=== PATIENT | female | born 1960 | race Caucasian/White ===

== ENCOUNTER 2016-03-17 14:08 | Emergency (ER) | payer OTHER ==
[~2016-03-17 14:08] MED LIST: /AUGM875TA; /PANT40TA PO; AMBI10TA OR; AMIT25TA PO; ASPI1TAB; BACL-67 PO; BUSPAR PO; COLA100C2 OR; COUM2.5T11 PO; DARV100T; DIFL200T; DULO30CA PO; IBUPPOW25; KLON2TAB PO; NYSTATIN; PERC5TAB8 OR; PERC7.5T8 OR; PERCOCET PO; TYLE167L PO; VIT D 2000 PO; VITA1CAP7 PO; VITA250L PO; VITA400C OR
--- NOTE | 2016-03-17 16:24 | EDDOCDS ---
Physician Documentation [facility] Name: Denise Olivarez Age: 56 yrs Sex: Female : 1960 Arrival Date: 03/17/2016 Time: 14:08 Bed TR8 Private MD: Cole Godinez D Disposition: 03/17/16 16:11 Discharged to Home/Self Care. Impression: Epigastric pain. - Condition is Stable. - Discharge Instructions: Abdominal Pain, Adult, Gastritis, Adult, Yelv-[id number]. - Medication Reconciliation, Local Pharmacy Hours form. - Follow up: Sukhi Hanks; When: Call to arrange an appointment; Reason: Recheck today's complaints, Continuance of care. - Problem is an ongoing problem. - Symptoms are unchanged. Historical: - Allergies: Morphine (palpitation); Hydrocortisone (palpitation); Latex (Hives); - Home Meds: 1. buspirone 10 mg Oral tab 2 tabs 2 times per day 2. clonazepam 0.5 mg Oral tab 2 tabs 2 times per day 3. Protonix 40 mg oral TbEC 1 tab once daily 4. Cymbalta 30 mg Oral cpDR 1 cap once daily 5. hydrocodone-acetaminophen 10-325 mg oral tab every 4-6 hours 6. Zoloft 100 mg Oral tab 1 tab once daily 7. gabapentin 300 mg Oral tab three times a day 8. Carafate 1 gram Oral tab three times a day 9. zinc sulfate 110 mg (25 mg zinc) Oral tab daily 10. Vitamin D Oral 5000 unit daily 11. 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 No barriers to communication noted, The patient speaks fluent Polish. - Family history: Not pertinent. - : The pt / caregiver states he / she is not on anticoagulants. Home medication list is obtained from the patient. - Exposure Risk Screening:: None identified. Vital Signs: 03/17 14:10 BP 121 / 74; Pulse 86; Resp 18; Temp 97.2; Pulse Ox 100% ; Weight 68.04 kg / 150 lbs; elp Height 5 ft. 6 in. (167.64 cm); Pain 9/10; 14:10 Body Mass Index 24.21 (68.04 kg, 167.64 cm) elp MDM: 16:21 [facility] [place] Payment Agreement was scanned into [employer] and attached to record. jp5 16:21 Financial registration complete. jp5 Signatures: Juliana CookRN RN rs3 Billie SantosRN RN ld5 Bj Combs PA PA mo1 Joanne Ayoub jp5 The chart was reviewed and I authenticate all verbal orders and agree with the evaluation and treatment provided.Attachments: 16:21 [facility] [place] Payment Agreement jp5 MTDD
--- NOTE | 2016-03-17 16:24 | EDDOCDS ---
Nurse's Notes [facility] Name: Denise Olivarez Age: 56 yrs Sex: Female : 1960 Arrival Date: 03/17/2016 Time: 14:08 Bed TR8 Private MD: Cole Godinez D Diagnosis: Epigastric pain Presentation: 03/17 14:27 Presenting complaint: Patient states: abdominal pain for months. diagnosed with lupus. rs3 worse abdominal pain/vomiting for a month. not resolved with Carafate, protonix. Risk factors: the patient reports no vaginal bleeding. Adult Sepsis Screening: The patient does not have new or worsening altered mentation. Patient's respiratory rate is less than 22. Systolic blood pressure is greater than 100. Patient has a qSOFA score of 0- Negative Sepsis Screen. Suicide/Homicide risk assessment- the patient denies having any suicidal and/or homicidal ideations and does not present with any other emotional, behavioral or mental health complaints. Status: Patient is not a customer complaint service supervisor or dependent. Transition of care: patient was not received from another setting of care. 14:27 Acuity: YUDI Level 3 rs3 14:27 Method Of Arrival: Walkin/Carried/Asstd rs3 Triage Assessment: 14:34 General: Appears in no apparent distress. Pain: Location: abdomen. Pt Declines HIV rs3 testing. GI: Reports lower abdominal pain, upper abdominal pain. Historical: - Allergies: Morphine (palpitation); Hydrocortisone (palpitation); Latex (Hives); - Home Meds: 1. buspirone 10 mg Oral tab 2 tabs 2 times per day 2. clonazepam 0.5 mg Oral tab 2 tabs 2 times per day 3. Protonix 40 mg oral TbEC 1 tab once daily 4. Cymbalta 30 mg Oral cpDR 1 cap once daily 5. hydrocodone-acetaminophen 10-325 mg oral tab every 4-6 hours 6. Zoloft 100 mg Oral tab 1 tab once daily 7. gabapentin 300 mg Oral tab three times a day 8. Carafate 1 gram Oral tab three times a day 9. zinc sulfate 110 mg (25 mg zinc) Oral tab daily 10. Vitamin D Oral 5000 unit daily 11. 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 No barriers to communication noted, The patient speaks fluent Syriac. - Family history: Not pertinent. - : The pt / caregiver states he / she is not on anticoagulants. Home medication list is obtained from the patient. - Exposure Risk Screening:: None identified. Screenin:44 Screening information is obtained from the patient. Fall risk: No risks identified. ms2 Assistance ADL's: requires no assistance with activities of daily living. Abuse/DV Screen: The patient / caregiver reports he/she is: not in a situation that causes fear, pain or injury. Nutritional screening: No deficits noted. Advance Directives: Currently, there is no health care proxy. There is no active DNR order. There is no living will. There is no Power of Personnel Clerks Supervisor. Advance directive information has not previously been placed in an [facility] medical record. Further advance directive information is declined. home support is adequate. Assessment: 15:43 General: Appears in no apparent distress, Behavior is cooperative. Pain: Pain currently ms2 is 8 out of 10 on a pain scale. Pain: Location: mid -epigastric area. Neurological: Level of Consciousness is awake, alert, obeys commands. Respiratory: No deficits noted. Airway is patent Respiratory effort is even, unlabored, Respiratory pattern is regular, symmetrical. GI: Abdomen is flat, non- distended. Derm: Skin is pink, warm & dry. Musculoskeletal: Range of motion intact in all extremities. 16:22 General: Appears in no apparent distress. Neurological: Level of Consciousness is ld5 awake, alert. Respiratory: Airway is patent Respiratory effort is even, unlabored. Vital Signs: 14:10 BP 121 / 74; Pulse 86; Resp 18; Temp 97.2; Pulse Ox 100% ; Weight 68.04 kg; Height 5 elp ft. 6 in. (167.64 cm); Pain 9/10; 14:10 Body Mass Index 24.21 (68.04 kg, 167.64 cm) [facility] Vitals: 14:10 Log In Time: March 17, 2016 at 14:08. [facility] ED Course: 14:10 Patient visited by Pamela Dave PCA. elp 14:10 Cole Godinez is Private Physician. elp 14:10 Patient visited by Patchen, Pamela, COMMUNITY SUPPORT PROFESSIONAL. elp 14:10 Patient moved to Waiting elp 14:11 Patient moved to Pre RCE elp 14:29 Triage Initiated rs3 15:43 Patient visited by Emerson Chang RN. ms2 15:43 Patient moved to Triage 1 ms2 15:44 The patient / caregiver is instructed regarding the plan of care and ED course. ms2 15:59 [facility] mo1 15:59 Emerson Chu MD is Attending Physician. mo1 16:01 Patient visited by Bj Combs PA. mo1 16:11 Sukhi Hanks is Referral Physician. mo1 16:20 Patient moved to TR8 ct3 16:21 [facility] Payment Agreement was scanned into [employer] and attached to record. jp5 16:22 No IV's were initiated during this patient's visit. No procedures done that require ld5 assistance. 16:23 Patient visited by Billie Santos RN. ld5 Order Results: There are currently no results for this order. Outcome: 16:11 Discharge ordered by Provider. mo1 16:22 Discharge Assessment: Patient awake, alert and oriented x 3. No cognitive and/or ld5 functional deficits noted. Patient verbalized understanding of disposition instructions. patient administered narcotics - no. The following High Risk Discharge criteria are identified: None. Discharged to home ambulatory. Condition: stable. Discharge instructions given to patient, Instructed on discharge instructions, follow up and referral plans. Demonstrated understanding of instructions, Pt was receptive of discharge instructions/ teaching. No special radiology studies were completed. Property :Personal belongings accompany Pt. 16:23 Patient left the ED. ld5 Signatures: Emerson Chang,RONAL RN ms2 Juliana Cook RN RN rs3 Billie Santos RN RN ld5 CentenoMay hinojosa, COMMUNITY SUPPORT PROFESSIONAL COMMUNITY SUPPORT PROFESSIONAL ct3 Bj Combs PA PA mo1 Pamela aDve, COMMUNITY SUPPORT PROFESSIONAL COMMUNITY SUPPORT PROFESSIONAL elp Joanne Ayoub jp5 MTDD
--- NOTE | 2016-03-19 17:23 | EDDOCDS ---
Nurse's Notes [facility] Name: Denise Olivarez Age: 56 yrs Sex: Female : 1960 Arrival Date: 03/17/2016 Time: 14:08 Bed TR8 Private MD: Cole Godinez D Diagnosis: Epigastric pain Presentation: 03/17 14:27 Presenting complaint: Patient states: abdominal pain for months. diagnosed with lupus. rs3 worse abdominal pain/vomiting for a month. not resolved with Carafate, protonix. Risk factors: the patient reports no vaginal bleeding. Adult Sepsis Screening: The patient does not have new or worsening altered mentation. Patient's respiratory rate is less than 22. Systolic blood pressure is greater than 100. Patient has a qSOFA score of 0- Negative Sepsis Screen. Suicide/Homicide risk assessment- the patient denies having any suicidal and/or homicidal ideations and does not present with any other emotional, behavioral or mental health complaints. Status: Patient is not a appliance service technician or dependent. Transition of care: patient was not received from another setting of care. 14:27 Acuity: YUDI Level 3 rs3 14:27 Method Of Arrival: Walkin/Carried/Asstd rs3 Triage Assessment: 14:34 General: Appears in no apparent distress. Pain: Location: abdomen. Pt Declines HIV rs3 testing. GI: Reports lower abdominal pain, upper abdominal pain. Historical: - Allergies: Morphine (palpitation); Hydrocortisone (palpitation); Latex (Hives); - Home Meds: 1. buspirone 10 mg Oral tab 2 tabs 2 times per day 2. clonazepam 0.5 mg Oral tab 2 tabs 2 times per day 3. Protonix 40 mg oral TbEC 1 tab once daily 4. Cymbalta 30 mg Oral cpDR 1 cap once daily 5. hydrocodone-acetaminophen 10-325 mg oral tab every 4-6 hours 6. Zoloft 100 mg Oral tab 1 tab once daily 7. gabapentin 300 mg Oral tab three times a day 8. Carafate 1 gram Oral tab three times a day 9. zinc sulfate 110 mg (25 mg zinc) Oral tab daily 10. Vitamin D Oral 5000 unit daily 11. 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 No barriers to communication noted, The patient speaks fluent Setswana. - Family history: Not pertinent. - : The pt / caregiver states he / she is not on anticoagulants. Home medication list is obtained from the patient. - Exposure Risk Screening:: None identified. Screenin:44 Screening information is obtained from the patient. Fall risk: No risks identified. ms2 Assistance ADL's: requires no assistance with activities of daily living. Abuse/DV Screen: The patient / caregiver reports he/she is: not in a situation that causes fear, pain or injury. Nutritional screening: No deficits noted. Advance Directives: Currently, there is no health care proxy. There is no active DNR order. There is no living will. There is no Power of Fish Rod Maker. Advance directive information has not previously been placed in an [facility] medical record. Further advance directive information is declined. home support is adequate. Assessment: 15:43 General: Appears in no apparent distress, Behavior is cooperative. Pain: Pain currently ms2 is 8 out of 10 on a pain scale. Pain: Location: mid -epigastric area. Neurological: Level of Consciousness is awake, alert, obeys commands. Respiratory: No deficits noted. Airway is patent Respiratory effort is even, unlabored, Respiratory pattern is regular, symmetrical. GI: Abdomen is flat, non- distended. Derm: Skin is pink, warm & dry. Musculoskeletal: Range of motion intact in all extremities. 16:22 General: Appears in no apparent distress. Neurological: Level of Consciousness is ld5 awake, alert. Respiratory: Airway is patent Respiratory effort is even, unlabored. Vital Signs: 14:10 BP 121 / 74; Pulse 86; Resp 18; Temp 97.2; Pulse Ox 100% ; Weight 68.04 kg; Height 5 elp ft. 6 in. (167.64 cm); Pain 9/10; 14:10 Body Mass Index 24.21 (68.04 kg, 167.64 cm) [facility] Vitals: 14:10 Log In Time: March 17, 2016 at 14:08. [facility] ED Course: 14:10 Patient visited by Pamela Dave PCA. elp 14:10 Cole Godinez is Private Physician. elp 14:10 Patient visited by Patchen, Pamela, ROUSTABOUT PUSHER. elp 14:10 Patient moved to Waiting elp 14:11 Patient moved to Pre RCE elp 14:29 Triage Initiated rs3 15:43 Patient visited by Emerson Chang RN. ms2 15:43 Patient moved to Triage 1 ms2 15:44 The patient / caregiver is instructed regarding the plan of care and ED course. ms2 15:59 [facility] Com[facility] mo1 15:59 Emerson Chu MD is Attending Physician. mo1 16:01 Patient visited by Bj Combs PA. mo1 16:11 uSkhi Hanks is Referral Physician. mo1 16:20 Patient moved to TR8 ct3 16:21 [facility] Payment Agreement was scanned into [employer] and attached to record. jp5 16:22 No IV's were initiated during this patient's visit. No procedures done that require ld5 assistance. 16:23 Patient visited by Billie Santos RN. ld5 03/18 12:38 T-Sheet-- Draft Copy was scanned into [employer] and attached to record. gb Order Results: There are currently no results for this order. Outcome: 03/17 16:11 Discharge ordered by Provider. mo1 16:22 Discharge Assessment: Patient awake, alert and oriented x 3. No cognitive and/or ld5 functional deficits noted. Patient verbalized understanding of disposition instructions. patient administered narcotics - no. The following High Risk Discharge criteria are identified: None. Discharged to home ambulatory. Condition: stable. Discharge instructions given to patient, Instructed on discharge instructions, follow up and referral plans. Demonstrated understanding of instructions, Pt was receptive of discharge instructions/ teaching. No special radiology studies were completed. Property :Personal belongings accompany Pt. 16:23 Patient left the ED. ld5 Signatures: Emerson Chang,RN RN ms2 Tena Davis, Reg Reg gb Juliana Cook RN RN rs3 Billie Santos RN RN ld5 May Centeno, ROUSTABOUT PUSHER ROUSTABOUT PUSHER ct3 Bj Combs PA PA mo1 Pamela Dave, ROUSTABOUT PUSHER ROUSTABOUT PUSHER elp Joanne Ayoub jp5 Chart Complete MTDD
--- NOTE | 2016-03-19 17:23 | EDDOCDS ---
Physician Documentation [facility] Name: Denise Olivarez Age: 56 yrs Sex: Female : 1960 Arrival Date: 03/17/2016 Time: 14:08 Bed TR8 Private MD: Cole Godinez D Disposition: 03/17/16 16:11 Discharged to Home/Self Care. Impression: Epigastric pain. - Condition is Stable. - Discharge Instructions: Abdominal Pain, Adult, Gastritis, Adult, [id number]. - Medication Reconciliation, Local Pharmacy Hours form. - Follow up: Sukhi Hanks; When: Call to arrange an appointment; Reason: Recheck today's complaints, Continuance of care. - Problem is an ongoing problem. - Symptoms are unchanged. Historical: - Allergies: Morphine (palpitation); Hydrocortisone (palpitation); Latex (Hives); - Home Meds: 1. buspirone 10 mg Oral tab 2 tabs 2 times per day 2. clonazepam 0.5 mg Oral tab 2 tabs 2 times per day 3. Protonix 40 mg oral TbEC 1 tab once daily 4. Cymbalta 30 mg Oral cpDR 1 cap once daily 5. hydrocodone-acetaminophen 10-325 mg oral tab every 4-6 hours 6. Zoloft 100 mg Oral tab 1 tab once daily 7. gabapentin 300 mg Oral tab three times a day 8. Carafate 1 gram Oral tab three times a day 9. zinc sulfate 110 mg (25 mg zinc) Oral tab daily 10. Vitamin D Oral 5000 unit daily 11. 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 No barriers to communication noted, The patient speaks fluent Maltese. - Family history: Not pertinent. - : The pt / caregiver states he / she is not on anticoagulants. Home medication list is obtained from the patient. - Exposure Risk Screening:: None identified. Vital Signs: 03/17 14:10 BP 121 / 74; Pulse 86; Resp 18; Temp 97.2; Pulse Ox 100% ; Weight 68.04 kg / 150 lbs; elp Height 5 ft. 6 in. (167.64 cm); Pain 9/10; 14:10 Body Mass Index 24.21 (68.04 kg, 167.64 cm) elp MDM: : [place] [place] Agreement was scanned into [employer] and attached to record. jp5 Financial registration complete. jp5 03/18 12:38 T-Sheet-- Draft Copy was scanned into [employer] and attached to record. gb Signatures: Tena Davis, Reg Reg gb Juliana Cook RN RN rs3 Billie Santos RN RN ld5 Bj Combs PA PA mo1 Joanne Ayoub jp5 The chart was reviewed and I authenticate all verbal orders and agree with the evaluation and treatment provided.Attachments: 03/17 16: [facility] [place] Payment Agreement jp5 03/18 12:38 T-Sheet-- Draft Copy gb Chart Complete MTDD
--- NOTE | 2016-03-19 17:23 | EDDOCDS ---
Physician Documentation [facility] Name: Denise Olivarez Age: 56 yrs Sex: Female : 1960 Arrival Date: 03/17/2016 Time: 14:08 Bed TR8 Private MD: Cole Godinez D Disposition: 03/17/16 16:11 Discharged to Home/Self Care. Impression: Epigastric pain. - Condition is Stable. - Discharge Instructions: Abdominal Pain, Adult, Gastritis, Adult, [id number]. - Medication Reconciliation, Local Pharmacy Hours form. - Follow up: Sukhi Hanks; When: Call to arrange an appointment; Reason: Recheck today's complaints, Continuance of care. - Problem is an ongoing problem. - Symptoms are unchanged. Historical: - Allergies: Morphine (palpitation); Hydrocortisone (palpitation); Latex (Hives); - Home Meds: 1. buspirone 10 mg Oral tab 2 tabs 2 times per day 2. clonazepam 0.5 mg Oral tab 2 tabs 2 times per day 3. Protonix 40 mg oral TbEC 1 tab once daily 4. Cymbalta 30 mg Oral cpDR 1 cap once daily 5. hydrocodone-acetaminophen 10-325 mg oral tab every 4-6 hours 6. Zoloft 100 mg Oral tab 1 tab once daily 7. gabapentin 300 mg Oral tab three times a day 8. Carafate 1 gram Oral tab three times a day 9. zinc sulfate 110 mg (25 mg zinc) Oral tab daily 10. Vitamin D Oral 5000 unit daily 11. 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 No barriers to communication noted, The patient speaks fluent Italian. - Family history: Not pertinent. - : The pt / caregiver states he / she is not on anticoagulants. Home medication list is obtained from the patient. - Exposure Risk Screening:: None identified. Vital Signs: 03/17 14:10 BP 121 / 74; Pulse 86; Resp 18; Temp 97.2; Pulse Ox 100% ; Weight 68.04 kg / 150 lbs; elp Height 5 ft. 6 in. (167.64 cm); Pain 9/10; 14:10 Body Mass Index 24.21 (68.04 kg, 167.64 cm) elp [place]DM: [place] [facility] [place] Agreement was scanned into [employer] and attached to record. jp5 Financial registration complete. jp5 03/18 12:38 T-Sheet-- Draft Copy was scanned into [employer] and attached to record. gb Signatures: Tena Davis, Reg Reg gb Juliana Cook RN RN rs3 Billie Santos RN RN ld5 Bj Combs PA PA mo1 Joanne Ayoub jp5 The chart was reviewed and I authenticate all verbal orders and agree with the evaluation and treatment provided.Attachments: 03/17 16: [facility] [place] jp5 03/18 12:38 T-Sheet-- Draft Copy gb Chart Complete MTDD
== END 2016-03-17 16:23 | disposition home or self-care (01) ==
LOC: M ED 14:08
DX: R10.13 Epigastric pain (principal); R11.2 Nausea with vomiting, unspecified; D68.62 Lupus anticoagulant syndrome; M54.9 Dorsalgia, unspecified; F32.9 Major depressive disorder, single episode, unspecified; F41.9 Anxiety disorder, unspecified; Z79.899 Other long term (current) drug therapy; Z79.82 Long term (current) use of aspirin; Z88.5 Allergy status to narcotic agent; Z88.8 Allergy status to other drugs, medicaments and biological substances; Z91.040 Latex allergy status; Z79.891 Long term (current) use of opiate analgesic

== ENCOUNTER → 2016-04-12 | Outpatient (REF) | payer OTHER ==
[2016-04-12 13:48] LABS: BASO % 0.6 % (0.0-1.0); EOS # 0.1 K/mm3 (0.0-0.50); EOS % 1.7 % (0.0-3.0); LARGE UNSTAINED CELL # 0.1 K/mm3 (0.0-0.4); LARGE UNSTAINED CELL % 1.1 % (0.0-4.0); LYMPH # 1.7 K/mm3 (1.5-4.5); LYMPH % 33.5 % (24.0-44.0); MEAN CORPUSCULAR HEMOGLOBIN 29.3 pg (27.0-33.0); MEAN CORPUSCULAR VOLUME 91.5 fl (80.0-96.0); MONO # 0.3 K/mm3 (0.0-0.8); NEUTROPHILS # 2.9 K/mm3 (1.8-7.7); NEUTROPHILS % 58.1 % (36.0-66.0); PLATELET COUNT, AUTOMATED 149 k/mm3 (150-450); RED CELL DISTRIBUTION WIDTH 12.9 % (11.5-14.5); WHITE BLOOD COUNT 4.9 K/mm3 (4.0-10.0)
[2016-04-12 14:11] LABS: ALBUMIN/GLOBULIN RATIO 1.43 (1.00-1.93); ALKALINE PHOSPHATASE 95 U/L (45-117); ALT/SGPT 34 U/L (12-78); ANION GAP 6 MEQ/L (8-16); AST/SGOT 25 U/L (15-37); BILIRUBIN,TOTAL 0.4 MG/DL (0.2-1.0); BLOOD UREA NITROGEN 15 MG/DL (7-18); CALCIUM LEVEL 9.5 MG/DL (8.5-10.1); CARBON DIOXIDE LEVEL 32 MEQ/L (21-32); CHLORIDE LEVEL 104 MEQ/L (98-107); COMPLEMENT C3 108 MG/DL (90-180); CREATININE FOR GFR 0.76 MG/DL (0.55-1.02); GLOMERULAR FILTRATION RATE > 60.0 (>51); GLUCOSE, FASTING 79 MG/DL (70-105); POTASSIUM SERUM 4.1 MEQ/L (3.5-5.1); SODIUM LEVEL 142 MEQ/L (136-145); TOTAL PROTEIN 6.8 GM/DL (6.4-8.2)
[2016-04-12 14:46] LABS: ERYTHROCYTE SEDIMENTATION RATE 6 mm/hr (0-30)
[2016-04-15 00:07] LABS: ANTI RIBOSOMAL ANTIBODIES <0.2 AI (0.0-0.9); Lyme Disease IgG/IgM Antibodie <0.91 ISR (0.00-0.90); Lyme Disease IgM Ab Quantitati <0.80 index (0.00-0.79)
== END ==
LOC: M LABDRAW1 12:48
PROVIDERS: ATTEND Internal Medicine Rheumatology
DX: M35.9 Systemic involvement of connective tissue, unspecified (principal); R53.83 Other fatigue; Z79.899 Other long term (current) drug therapy

== ENCOUNTER → 2016-05-04 | Outpatient (CLI) | payer OTHER ==
[~2016-05-04] VITALS: Ht 167.6 cm; Wt 71.2 kg
[~2016-05-04] MED LIST changes: -ASPI1TAB; +ASPI1TAB PO; +BUSP10TA PO; +GABA300C3 PO; +HYDR-3713 PO; +LIDOCAINE 2% INJ 100 MG/5 ML SDV (FOR ANES.) As Ordered ONE; +NS 1,000 ML IV SCH; +PANT40TA2 PO; +PROPOFOL 200 MG/20 ML VIAL As Ordered ONE; +SUCR1TA PO; +VITA500046 PO; +ZINC50TA PO; +ZOLO100T PO; +fentaNYL 100 MCG/2 ML INJECTION (J3010) As Ordered ONE
--- NOTE | 2016-05-04 11:23 | ROOR ---
Patient Name: Denise Olivarez Procedure Date: 05/04/2016 10:57 AM Date of : 1960 Age: 56 Room: [facility] Gender: Female Note Status: Finalized Procedure: Upper GI endoscopy Indications: Dysphagia, Heartburn Providers: Sukhi HANKS MD Referring MD: MAYCOL MONSIVAIS MD Requesting Provider: Medicines: Monitored Anesthesia Care Complications: No immediate complications. Procedure: Pre-Anesthesia Assessment: - The heart rate, respiratory rate, oxygen saturations, blood pressure, adequacy of pulmonary ventilation, and response to care were monitored throughout the procedure. The Endoscope was introduced through the mouth, and advanced to the second part of duodenum. The upper GI endoscopy was accomplished without difficulty. The patient tolerated the procedure well. Findings: The esophagus was normal. The stomach was normal. The examined duodenum was normal. No endoscopic abnormality was evident in the esophagus to explain the patient's complaint of dysphagia. It was decided, however, to proceed with dilation of the entire esophagus. The scope was withdrawn. Dilation was performed with a Ortiz dilator with no resistance at 54 Fr and 56 Fr. The dilation site was examined following endoscope reinsertion and showed no change. Impression: - Normal esophagus. - Normal stomach. - Normal examined duodenum. - No endoscopic esophageal abnormality to explain patient's dysphagia. Esophagus dilated. Dilated. - No specimens collected. Recommendation: - Continue present medications. - Observe patient's clinical course. Sukhi Hanks MD Sukhi HANKS MD 05/04/2016 11:23:00 AM This report has been signed electronically. Number of Addenda: 0 Note Initiated On: 05/04/2016 10:57 AM Estimated Blood Loss: Estimated blood loss: none.
[2016-05-04 11:35] VITALS: BP 148/90
== END | disposition home or self-care (01) ==
LOC: M OPP 09:32
PROVIDERS: ATTEND Internal Medicine Gastroenterology
DX: R13.10 Dysphagia, unspecified (principal); R12 Heartburn; R10.13 Epigastric pain; K57.92 Diverticulitis of intestine, part unspecified, without perforation or abscess without bleeding; K44.9 Diaphragmatic hernia without obstruction or gangrene; K58.9 Irritable bowel syndrome, unspecified; R23.3 Spontaneous ecchymoses; M32.9 Systemic lupus erythematosus, unspecified; R06.02 Shortness of breath; M19.90 Unspecified osteoarthritis, unspecified site; F41.9 Anxiety disorder, unspecified; F32.9 Major depressive disorder, single episode, unspecified; R51 Headache; Z78.0 Asymptomatic menopausal state; M54.2 Cervicalgia; G47.30 Sleep apnea, unspecified; R06.83 Snoring; Z87.891 Personal history of nicotine dependence; Z91.040 Latex allergy status; Z88.8 Allergy status to other drugs, medicaments and biological substances; Z88.5 Allergy status to narcotic agent; Z79.82 Long term (current) use of aspirin; Z79.899 Other long term (current) drug therapy; Z80.41 Family history of malignant neoplasm of ovary
CPT/HCPCS: 43235; 43450; 99156; J3010

== ENCOUNTER → 2016-06-16 | Outpatient (CLI) | payer OTHER ==
[~2016-06-16] MED LIST changes: +GABA-282 PO; -GABA300C3 PO; -LIDOCAINE 2% INJ 100 MG/5 ML SDV (FOR ANES.) As Ordered ONE; -NS 1,000 ML IV SCH; -PROPOFOL 200 MG/20 ML VIAL As Ordered ONE; -fentaNYL 100 MCG/2 ML INJECTION (J3010) As Ordered ONE
[2016-06-16 16:37] LABS: BASO % 0.5 % (0.0-1.0); EOS # 0.1 K/mm3 (0.0-0.50); LARGE UNSTAINED CELL # 0.1 K/mm3 (0.0-0.4); LARGE UNSTAINED CELL % 1.9 % (0.0-4.0); LYMPH # 1.9 K/mm3 (1.5-4.5); LYMPH % 26.4 % (24.0-44.0); MEAN CORPUSCULAR HGB CONC 33.5 g/dl (32.0-36.5); MEAN CORPUSCULAR VOLUME 89.5 fl (80.0-96.0); MONO # 0.3 K/mm3 (0.0-0.8); MONO % 4.5 % (0.0-5.0); NEUTROPHILS # 4.7 K/mm3 (1.8-7.7); NEUTROPHILS % 65.7 % (36.0-66.0); PLATELET COUNT, AUTOMATED 145 k/mm3 (150-450); RED CELL DISTRIBUTION WIDTH 13.1 % (11.5-14.5); WHITE BLOOD COUNT 7.2 K/mm3 (4.0-10.0)
== END ==
LOC: M WUC 13:47
PROVIDERS: ATTEND Internal Medicine Rheumatology
DX: D69.3 Immune thrombocytopenic purpura (principal); Z79.899 Other long term (current) drug therapy

== ENCOUNTER → 2016-06-22 | Outpatient (CLI) | payer OTHER ==
--- NOTE | 2016-06-22 20:39 | REP ---
CERVICAL SPINE, SEVEN VIEWS: HISTORY: Spondylosis. There is no acute fracture or subluxation. The C4-5 through C6-7 intervertebral discs are decreased in height consistent with disc degeneration. There is narrowing of the C5 neural foramina secondary to uncinate process hypertrophy. IMPRESSION: Degenerative change as described above. Signed by Edvin Trujillo MD 06/23/2016 07:46 A
--- NOTE | 2016-06-22 20:46 | REP ---
LUMBAR SPINE, SEVEN VIEWS: HISTORY: Spondylosis. COMPARISON: 01/30/2006. There is no acute fracture or subluxation. The L2-3 through L5-S1 intervertebral discs are decreased in height consistent with disc degeneration. Osteophytes are present on L4 and L5. There is narrowing of the L4-5 and L5-S1 facet joints. IMPRESSION: Degenerative change as described above. Signed by Edvin Trujillo MD 06/23/2016 07:46 A
== END ==
LOC: M WUC 13:47
PROVIDERS: ATTEND Neurological Surgery
DX: M47.892 Other spondylosis, cervical region (principal); M47.896 Other spondylosis, lumbar region

== ENCOUNTER → 2016-07-27 | Outpatient (CLI) | payer OTHER ==
[~2016-07-27] MED LIST changes: +GASTROGRAFIN SOLUTION 30ML (Q9963) As Ordered ONE; +ISOVUE-370 76% 100ML VIAL (Q9967) As Ordered ONE
--- NOTE | 2016-07-28 08:48 | REP ---
Clinical: Epigastric pain with nausea and vomiting. Technique: Axial contrast enhanced images from the lung bases to the pubic symphysis using oral and 100 ml Isovue 370 intravenous contrast material with precontrast images of the abdomen as well as coronal and sagittal re-formations. Comparison: 03/23/2015. Findings: Lung bases are clear. Visualized heart and pericardium normal. Liver, spleen, pancreas, bilateral adrenal glands and kidneys are relatively normal. The patient is status post cholecystectomy with compensatory intrahepatic and extrahepatic biliary ductal dilatation as well as mild prominence to the pancreatic duct measuring 4 mm diameter. The enteric system is without obstruction or acute inflammatory process. Pelvis demonstrates normal bladder and evidence for prior hysterectomy. No ascites. No free air. No adenopathy. Musculoskeletal structures demonstrate age-related degenerative changes without focal osseous abnormality. Impression: 1. Intrahepatic and extrahepatic biliary ductal dilatation along with prominence to the pancreatic duct likely secondary to prior cholecystectomy. 2. No further acute intra-abdominal or pelvic pathology appreciated. Signed by Jose Holguin MD 07/28/2016 08:40 A
== END ==
LOC: M RAD 09:11
PROVIDERS: ATTEND Physician Assistant Medical
DX: R10.13 Epigastric pain (principal); R11.0 Nausea; K59.00 Constipation, unspecified

== ENCOUNTER → 2016-10-04 | Outpatient (REF) | payer OTHER ==
[~2016-10-04] MED LIST changes: -BACL-67 PO; +BACL1TAB9 PO; +CELE1CAP4 PO; -COUM2.5T11 PO; +COUM2.5T17 PO; +DEXI60CA2 PO; +EFFE75CA75 PO; -GASTROGRAFIN SOLUTION 30ML (Q9963) As Ordered ONE; +HYDR-2807 PO; -ISOVUE-370 76% 100ML VIAL (Q9967) As Ordered ONE; +MULT1TAB10 PO; +RISP0.5T3 PO; +TOPI25TA10 PO
== END ==
LOC: M SFHCPLAZ 08:25
PROVIDERS: ATTEND Family Medicine
DX: E78.2 Mixed hyperlipidemia (principal); E55.9 Vitamin D deficiency, unspecified

== ENCOUNTER → 2017-01-12 | Outpatient (CLI) | payer OTHER ==
[~2017-01-12] VITALS: Ht 167.6 cm; Wt 73.9 kg
[~2017-01-12] MED LIST changes: +BACITRACIN PWD 50,000 UNITS VIAL As Ordered ONE; +LIDOCAINE W/EPINEPHRINE 1% 20ML VIAL As Ordered ONE; +LR 1,000 ML IV ONE; +MIDAZOLAM INJ 2 MG/2 ML VIAL (J2250) As Ordered ONE; +fentaNYL 100 MCG/2 ML INJECTION (J3010) As Ordered ONE; +methylPREDNISolone SUSP 40 MG/ML (DEPO-medrol) VIAL (J1030) As Ordered ONE
[2017-01-12 12:10] VITALS: BP 128/74
== END ==
LOC: EDSTATUS 08:30 → M SDC 11:45
PROVIDERS: ATTEND Neurological Surgery
DX: M50.30 Other cervical disc degeneration, unspecified cervical region (principal); M47.892 Other spondylosis, cervical region; Z53.20 Procedure and treatment not carried out because of patient's decision for unspecified reasons

== ENCOUNTER → 2017-03-16 | Outpatient (REF) | payer OTHER, MEDICAID ==
[2017-03-16 21:33] LABS: BASO % 0.7 % (0.0-1.0); EOS # 0.1 10^3/uL (0.0-0.50); EOS % 1.1 % (0.0-3.0); HEMATOCRIT 40.8 % (36.0-47.0); IMMATURE GRANULOCYTE % 0.2 % (0-0); LYMPH # 1.5 10^3/uL (1.5-4.5); LYMPH % 28.1 % (24.0-44.0); MEAN CORPUSCULAR HEMOGLOBIN 29.4 pg (27.0-33.0); MEAN CORPUSCULAR HGB CONC 31.9 g/dl (32.0-36.5); MEAN CORPUSCULAR VOLUME 92.3 fl (80.0-96.0); MONO # 0.3 10^3/uL (0.0-0.8); MONO % 5.8 % (0.0-5.0); NEUTROPHILS # 3.5 10^3/uL (1.8-7.7); NEUTROPHILS % 64.1 % (36.0-66.0); PLATELET COUNT, AUTOMATED 150 10^3/uL (150-450); RED BLOOD COUNT 4.42 10^6/uL (4.00-5.40); RED CELL DISTRIBUTION WIDTH 13.2 % (11.5-14.5); WHITE BLOOD COUNT 5.4 10^3/uL (4.0-10.0)
[2017-03-16 21:51] LABS: ALBUMIN 3.9 GM/DL (3.2-5.2); ALBUMIN/GLOBULIN RATIO 1.39 (1.00-1.93); ALKALINE PHOSPHATASE 77 U/L (45-117); ALT/SGPT 24 U/L (12-78); ANION GAP 5 MEQ/L (8-16); AST/SGOT 19 U/L (7-37); BILIRUBIN,TOTAL 0.3 MG/DL (0.2-1.0); BLOOD UREA NITROGEN 20 MG/DL (7-18); CALCIUM LEVEL 8.9 MG/DL (8.5-10.1); CARBON DIOXIDE LEVEL 30 MEQ/L (21-32); CHLORIDE LEVEL 107 MEQ/L (98-107); CREATININE FOR GFR 0.86 MG/DL (0.55-1.02); GLOMERULAR FILTRATION RATE > 60.0 (>51); GLUCOSE, FASTING 101 MG/DL (70-105); POTASSIUM SERUM 4.3 MEQ/L (3.5-5.1); SODIUM LEVEL 142 MEQ/L (136-145); TOTAL PROTEIN 6.7 GM/DL (6.4-8.2)
[2017-03-16 22:14] LABS: INR 0.92; PROTHROMBIN TIME 12.4 SECONDS (12.4-14.5)
[2017-03-16 22:15] LABS: PARTIAL THROMBOPLASTIN TIME 29.2 SECONDS (26.8-37.9)
== END ==
LOC: M LABDRWAD 10:20
DX: Z01.818 Encounter for other preprocedural examination (principal)

== ENCOUNTER → 2017-03-20 | Outpatient (REF) | payer OTHER, MEDICAID ==
[2017-03-20 10:20] LABS: COLLAGEN EPINEPHRINE 98 SECONDS (74-162)
== END ==
LOC: M LABDRWAD 09:48
DX: Z01.818 Encounter for other preprocedural examination (principal)

== ENCOUNTER 2017-03-22 12:00 | Day surgery (SDC) | payer OTHER ==
[2017-03-22] MEDS: LR 1,000 ML IV (13:35)
[2017-03-22] MEDS ORDERED: LIDOCAINE 2% INJ 100 MG/5 ML SDV (FOR ANES.) As Ordered (15:26)
[2017-03-22] MEDS ORDERED: PROPOFOL 200 MG/20 ML VIAL As Ordered ×3 (15:26→17:18)
[2017-03-22] MEDS ORDERED: MIDAZOLAM INJ 2 MG/2 ML VIAL (J2250) As Ordered (15:27)
[2017-03-22] MEDS ORDERED: fentaNYL 100 MCG/2 ML INJECTION (J3010) As Ordered (15:27)
[2017-03-22] MEDS: BACITRACIN PWD 50,000 UNITS VIAL As Ordered (17:10)
[2017-03-22] MEDS: LIDOCAINE W/EPINEPHRINE 1% 20ML VIAL As Ordered (17:33)
[2017-03-22] MEDS: methylPREDNISolone SUSP 40 MG/ML (DEPO-medrol) VIAL (J1030) As Ordered (17:34)
[2017-03-22] MEDS ORDERED: NORCO, ANEXSIA 5/325MG TABLET (HYDROcodone/ACETAMINOPHEN) As Ordered (18:20)
[2017-03-22] MEDS ORDERED: ONDANSETRON 4MG/2ML VIAL (J2405) IV (18:30)
[2017-03-22] MEDS ORDERED: LR 1,000 ML IV (18:30)
[2017-03-22] MEDS: NORCO, ANEXSIA 5/325MG TABLET (HYDROcodone/ACETAMINOPHEN) PO (18:30)
[2017-03-22] MEDS ORDERED: fentaNYL 100 MCG/2 ML INJECTION (J3010) IV (18:30)
[2017-03-22] MEDS ORDERED: NORCO, ANEXSIA 5/325MG TABLET (HYDROcodone/ACETAMINOPHEN) PO (18:30)
== END 2017-03-22 19:45 | disposition home or self-care (01) ==
LOC: M SDC 19:45
DX: G44.009 Cluster headache syndrome, unspecified, not intractable (principal); M54.81 Occipital neuralgia; M47.812 Spondylosis without myelopathy or radiculopathy, cervical region; M47.16 Other spondylosis with myelopathy, lumbar region; M25.9 Joint disorder, unspecified; M46.1 Sacroiliitis, not elsewhere classified; G89.29 Other chronic pain; G56.23 Lesion of ulnar nerve, bilateral upper limbs; G56.20 Lesion of ulnar nerve, unspecified upper limb; K57.32 Diverticulitis of large intestine without perforation or abscess without bleeding; K44.9 Diaphragmatic hernia without obstruction or gangrene; K58.9 Irritable bowel syndrome, unspecified; K21.9 Gastro-esophageal reflux disease without esophagitis; M12.9 Arthropathy, unspecified; F41.9 Anxiety disorder, unspecified; F32.9 Major depressive disorder, single episode, unspecified; R06.83 Snoring; G47.33 Obstructive sleep apnea (adult) (pediatric); Z88.5 Allergy status to narcotic agent; Z88.8 Allergy status to other drugs, medicaments and biological substances; Z91.040 Latex allergy status; Z79.899 Other long term (current) drug therapy; Z79.82 Long term (current) use of aspirin; Z87.891 Personal history of nicotine dependence; Z90.710 Acquired absence of both cervix and uterus; Z96.642 Presence of left artificial hip joint
CPT/HCPCS: 64722

== ENCOUNTER → 2017-04-19 | Outpatient (CLI) | payer OTHER | LOC: M WUC 11:48 | DX: R05 Cough (principal) | CPT/HCPCS: 71046 ==

== ENCOUNTER → 2018-02-11 | Outpatient (CLI) | payer OTHER ==
[~2018-02-11] MED LIST changes: -BACITRACIN PWD 50,000 UNITS VIAL As Ordered ONE; +CLON0.5T8 PO; +EFFE75CA2 PO; -EFFE75CA75 PO; -GABA-282 PO; +GABA-843 PO; -LIDOCAINE W/EPINEPHRINE 1% 20ML VIAL As Ordered ONE; -LR 1,000 ML IV ONE; -MIDAZOLAM INJ 2 MG/2 ML VIAL (J2250) As Ordered ONE; -PANT40TA2 PO; +PANT40TA3 PO; -fentaNYL 100 MCG/2 ML INJECTION (J3010) As Ordered ONE; -methylPREDNISolone SUSP 40 MG/ML (DEPO-medrol) VIAL (J1030) As Ordered ONE
[2018-02-11 15:53] LABS: ALBUMIN 3.7 GM/DL (3.2-5.2); ALT/SGPT 19 U/L (12-78); BILIRUBIN,TOTAL 0.5 MG/DL (0.2-1.0); BLOOD UREA NITROGEN 24 MG/DL (7-18); CARBON DIOXIDE LEVEL 27 MEQ/L (21-32); CHLORIDE LEVEL 109 MEQ/L (98-107); CHOLESTEROL LEVEL 229 MG/DL (<200); CHOLESTEROL RISK RATIO 3.367 (<5); CREATININE FOR GFR 0.95 MG/DL (0.55-1.30); GLOMERULAR FILTRATION RATE > 60.0 (>51); GLUCOSE, FASTING 83 MG/DL (70-100); HDL CHOLESTEROL 68 MG/DL (>40); LDL CHOLESTEROL 138 MG/DL (<100); NON-HDL-C 161 MG/DL; POTASSIUM SERUM 4.7 MEQ/L (3.5-5.1); SODIUM LEVEL 144 MEQ/L (136-145); TOTAL 25(OH) VITAMIN D 46.4 NG/ML (30.0-100.0); TOTAL PROTEIN 7.1 GM/DL (6.4-8.2); TRIGLYCERIDES LEVEL 113 MG/DL (<150)
== END ==
LOC: M WUC 11:30
PROVIDERS: ATTEND Family Medicine
DX: E55.9 Vitamin D deficiency, unspecified (principal); E78.2 Mixed hyperlipidemia; F41.8 Other specified anxiety disorders; R41.3 Other amnesia

== ENCOUNTER → 2018-04-03 | Outpatient (CLI) | payer MEDICARE, OTHER ==
--- NOTE | 2018-04-03 13:05 | REPMRS ---
Patient History The patient states she has not had a clinical breast exam in over a year. Family history of ovarian cancer at age 57 in mother. Digital Woman Screen Mammo: April 03, 2018 - Exam #: [id number] Bilateral CC and MLO view(s) were taken. Technologist: Mary Jo Shafer, Technologist Prior study comparison: December 18, 2014, digital woman screen mammo performed at [facility]. July 17, 2011, digital woman screen mammo performed at [facility]. April 15, 2009, bilateral bilat screen digital mammo performed at [facility]. FINDINGS: There are scattered fibroglandular densities. There has been no change in the appearance of the mammogram from the prior studies. There is a mild amount of scattered fibroglandular density which is fairly symmetric. There is no interval development of dominant mass, architectural distortion, or clustered microcalcification suggestive of malignancy. 3-D tomosynthesis shows no additional findings. Assessment: BI-RADS/ACR category 1 mammogram. Negative Mammogram. Recommendation Routine screening mammogram of both breasts in 1 year (for women over age 40). This patient's Lifetime Breast Cancer RIsk is estimated at 6.1 %. This mammogram was interpreted with the aid of an FDA-approved computer-aided dectection system. Electronically Signed By: Jorge A Roth MD 04/03/18 [id number]
== END ==
LOC: M WHC 11:03
PROVIDERS: ATTEND Family Medicine
DX: Z12.31 Encounter for screening mammogram for malignant neoplasm of breast (principal)

== ENCOUNTER → 2018-09-18 | Outpatient (CLI) | payer MEDICARE, OTHER ==
[~2018-09-18] MED LIST changes: -/PANT40TA PO; -ASPI1TAB PO; +ASPI81TA26 PO; +D-3-50003 PO; -DULO30CA PO; +DULO30CA9 PO; +PROT1TAB2 PO; -VITA1CAP7 PO
--- NOTE | 2018-09-19 02:48 | REP ---
Clinical: Acute bronchitis . Comparison: 04/19/2017 . Technique: PA and lateral. Findings: The mediastinum and cardiac silhouette are normal. The lung atkins are clear and without acute consolidation, effusion, or pneumothorax. The skeletal structures are intact and normal. Impression: 1. No acute cardiopulmonary process. Electronically Signed by Jose Holguin MD 09/19/2018 02:39 A
== END ==
LOC: M WUC 14:29
PROVIDERS: ATTEND Physician Assistant
DX: Z87.09 Personal history of other diseases of the respiratory system (principal)

== ENCOUNTER → 2018-10-04 | Outpatient (CLI) | payer MEDICARE, MEDICAID ==
[~2018-10-04] MED LIST changes: +GASTROGRAFIN SOLUTION 30ML (Q9963) As Ordered ONE; +ISOVUE-370 76% 100ML VIAL (Q9967) As Ordered ONE
[2018-10-04 12:44] LABS: BASO % 0.7 % (0.0-1.0); EOS # 0.1 10^3/uL (0.0-0.50); EOS % 1.8 % (0.0-3.0); HEMATOCRIT 39.7 % (36.0-47.0); HEMOGLOBIN 12.6 g/dl (12.0-15.5); LYMPH # 1.8 10^3/uL (1.5-4.5); LYMPH % 28.7 % (24.0-44.0); MEAN CORPUSCULAR HEMOGLOBIN 29.4 pg (27.0-33.0); MEAN CORPUSCULAR HGB CONC 31.7 g/dl (32.0-36.5); MEAN CORPUSCULAR VOLUME 92.8 fl (80.0-96.0); MONO # 0.5 10^3/uL (0.0-0.8); MONO % 7.4 % (0.0-5.0); NEUTROPHILS # 3.7 10^3/uL (1.8-7.7); NEUTROPHILS % 60.9 % (36.0-66.0); PLATELET COUNT, AUTOMATED 177 10^3/uL (150-450); RED BLOOD COUNT 4.28 10^6/uL (4.00-5.40); WHITE BLOOD COUNT 6.1 10^3/uL (4.0-10.0)
[2018-10-04 12:46] LABS: APPEARANCE, URINE CLEAR (CLEAR); BACTERIA, URINE AUTO NEGATIVE (NEGATIVE); BILIRUBIN, URINE AUTO NEGATIVE (NEGATIVE); BLOOD, URINE BLOOD NEGATIVE (NEGATIVE); COLOR, URINE YELLOW (YELLOW); GLUCOSE, URINE (UA) AUTO NEGATIVE (NEGATIVE); KETONE, URINE AUTO NEGATIVE (NEGATIVE); LEUKOCYTE ESTERASE, URINE AUTO TRACE (NEGATIVE); MUCUS, URINE SMALL (NEGATIVE); NITRITE, URINE AUTO NEGATIVE (NEGATIVE); PROTEIN, URINE AUTO NEGATIVE (NEGATIVE); RBC, URINE AUTO 1 /HPF (0-3); SPECIFIC GRAVITY URINE AUTO 1.013 (1.002-1.035); SQUAMOUS EPITHELIAL CELL UR AU 0 /HPF (0-6); UROBILINOGEN, URINE AUTO 0.2 mg/dL (0.0-2.0); WBC, URINE AUTO 1 /HPF (0-3)
[2018-10-04 13:10] LABS: ALBUMIN 3.7 GM/DL (3.2-5.2); ALT/SGPT 22 U/L (12-78); BILIRUBIN,TOTAL 0.4 MG/DL (0.2-1.0); BLOOD UREA NITROGEN 11 MG/DL (7-18); CARBON DIOXIDE LEVEL 32 MEQ/L (21-32); CHLORIDE LEVEL 106 MEQ/L (98-107); CREATININE FOR GFR 0.82 MG/DL (0.55-1.30); GLOMERULAR FILTRATION RATE > 60.0 (>51); GLUCOSE, FASTING 74 MG/DL (70-100); POTASSIUM SERUM 4.7 MEQ/L (3.5-5.1); SODIUM LEVEL 142 MEQ/L (136-145); TOTAL PROTEIN 6.9 GM/DL (6.4-8.2)
--- NOTE | 2018-10-04 19:52 | REP ---
CT ABDOMEN AND PELVIS WITH IV AND ORAL CONTRAST: 10/04/2018. Comparison: 03/23/2015. Technique: Oral contrast mixture per our protocol and bolus of 100 mL as Isovue 370 given with coronal and sagittal reconstructions following axial imaging. Clinical history: Right lower quadrant pain. Findings: CT abdomen: Lung bases are clear. Heart not enlarged. There is no pericardial thickening or effusion. No hiatal hernia. Stomach with oral contrast within but no mass. Clips post cholecystectomy and prominence of the common proximal intrahepatic ducts are unchanged from the study 3 years ago. No hepatic mass, cyst or ascites. No splenomegaly or focal lesion. Pancreas unchanged and pancreatic duct less than 3 mm maximum diameter. Common duct in the pancreatic head up to 10.5 mm , unchanged and without calcified stone. Adrenal glands normal. Kidneys show symmetric enhancement and without mass, cyst, stone or hydronephrosis. There is no hydroureter or ureteral stone on either side. Small bowel loops unremarkable. Hepatic and splenic flexure, transverse and left colon unremarkable. Right colon shows no definite mass or stricture. There is some slight wall thickening and stranding that may reflect some mild right-sided colitis. Fat along the ileocecal valve is seen as a nonspecific finding. Terminal ileum grossly intact. Bone windows show lumbar and lower thoracic degenerative changes which are mild . Vacuum phenomena at L5-S1. No fractures or compression deformities. No spondylolysis. Visualized lower ribs were intact. CT pelvis: The SI joints, sacrum and iliac bones grossly intact. The right hip shows degenerative changes with spurring and joint space narrowing without fracture and the left total arthroplasty is again seen and unchanged. Ischia and symphysis pubis were unremarkable. There is no umbilical hernia. There is an infraumbilical herniation of small amount of omental fat through the midline raphe. No bowel herniation, inguinal hernia or adenopathy. No pelvic adenopathy. Bladder without gross mass or stone and no wall thickening. Uterus absent. The left hip arthroplasty limits evaluation of the distal left colon and sigmoid as well as portion of the bladder. Anastomotic sutures at the rectosigmoid junction are noted. Small bowel loops in the pelvis unremarkable. Impression: 1. Some mild right-sided colitis without diverticulitis, abscess or free fluid. The patient had a prior appendectomy. Remainder of the colon unremarkable. There has been a prior rectosigmoid anastomosis, intact. 2. A left total hip arthroplasty limits evaluation of the distal left colon and sigmoid and left side of the bladder. There are pelvic phleboliths but no definite ureteral or bladder stone nor mass. 3. Chronic postcholecystectomy changes, stable for 3 years. 4. Kidneys, adrenal glands, pancreas and spleen unremarkable, unchanged. Electronically Signed by Coleman Stein MD 10/05/2018 10:07 A
== END ==
LOC: M RAD 12:01
PROVIDERS: ATTEND Obstetrics & Gynecology
DX: K52.9 Noninfective gastroenteritis and colitis, unspecified (principal); R10.31 Right lower quadrant pain; M54.2 Cervicalgia
CPT/HCPCS: 20552; 36415; 74177; 80053; 81001; 85025; G0463; Q9963; Q9967

== ENCOUNTER → 2018-12-09 | Outpatient (REF) | payer MEDICARE, MEDICAID ==
[~2018-12-09] MED LIST changes: +ESCI20TA PO; -GASTROGRAFIN SOLUTION 30ML (Q9963) As Ordered ONE; +IBUP80TA PO; -ISOVUE-370 76% 100ML VIAL (Q9967) As Ordered ONE; +PROP20TA72 PO
== END ==
LOC: M SFHCPLAZ 13:00
PROVIDERS: ATTEND Family Medicine
DX: Z79.899 Other long term (current) drug therapy (principal)

== ENCOUNTER 2019-01-15 08:39 | Day surgery (SDC) | payer MEDICARE, MEDICAID ==
[~2019-01-15] VITALS: Ht 167.6 cm; Wt 88.0 kg
[~2019-01-15 08:39] MED LIST changes: +NS 1,000 ML IV ONE
[2019-01-15] MEDS ORDERED: PROPOFOL 200 MG/20 ML VIAL As Ordered ONE (09:44)
[2019-01-15] MEDS ORDERED: LIDOCAINE 2% INJ 100 MG/5 ML SDV (FOR ANES.) As Ordered ONE (09:44)
--- NOTE | 2019-01-15 10:22 | ROOR ---
Patient Name: Denise Olivarez Procedure Date: 01/15/2019 9:36 AM Date of : 1960 Age: 58 Room: [facility] Gender: Female Note Status: Finalized Procedure: Upper GI endoscopy Indications: Epigastric abdominal pain, Abdominal pain in the left upper quadrant, Abdominal pain in the right lower quadrant, Melena Providers: Anjel Green MD Referring MD: MAYCOL MONSIVAIS MD Requesting Provider: Medicines: Monitored Anesthesia Care Complications: No immediate complications. Procedure: Pre-Anesthesia Assessment: - Prior to the procedure, a History and Physical was performed, and patient medications and allergies were reviewed. The patient is competent. The risks and benefits of the procedure and the sedation options and risks were discussed with the patient. All questions were answered and informed consent was obtained. Patient identification and proposed procedure were verified by the physician, the nurse and the anesthesiologist in the endoscopy suite. Mental Status Examination: alert and oriented. Airway Examination: normal oropharyngeal airway and neck mobility. Respiratory Examination: clear to auscultation. CV Examination: normal. Prophylactic Antibiotics: The patient does not require prophylactic antibiotics. Prior Anticoagulants: The patient has taken no previous anticoagulant or antiplatelet agents. ASA Grade Assessment: III - A patient with severe systemic disease. After reviewing the risks and benefits, the patient was deemed in satisfactory condition to undergo the procedure. The anesthesia plan was to use monitored anesthesia care (MAC). Immediately prior to administration of medications, the patient was re-assessed for adequacy to receive sedatives. The heart rate, respiratory rate, oxygen saturations, blood pressure, adequacy of pulmonary ventilation, and response to care were monitored throughout the procedure. The physical status of the patient was re-assessed after the procedure. The Endoscope was introduced through the mouth, and advanced to the second part of duodenum. The patient tolerated the procedure well. Findings: The examined esophagus was normal. The Z-line was regular and was found 36 cm from the incisors. Bilious fluid was found in the gastric body. The in the duodenum was normal. patulous pylorus Impression: - Normal esophagus. - Z-line regular, 36 cm from the incisors. - Bilious gastric fluid. - Normal. - No specimens collected. Recommendation: - Discharge patient to home (ambulatory). - Continue present medications. Anjel Green MD Anjel Green MD 01/15/2019 10:22:29 AM Electronically signed by Anjel Green MD Number of Addenda: 0 Note Initiated On: 01/15/2019 9:36 AM Estimated Blood Loss: Estimated blood loss: none.
--- NOTE | 2019-01-15 10:27 | ROOR ---
Patient Name: Denise Olivarez Procedure Date: 01/15/2019 9:36 AM Date of : 1960 Age: 58 Room: [facility] Gender: Female Note Status: Finalized Procedure: Colonoscopy Indications: Abdominal pain in the left upper quadrant, Abdominal pain in the right lower quadrant Providers: Anjel Green MD Referring MD: MAYCOL MONSIVAIS MD Requesting Provider: Medicines: Monitored Anesthesia Care Complications: No immediate complications. Procedure: Pre-Anesthesia Assessment: - Prior to the procedure, a History and Physical was performed, and patient medications and allergies were reviewed. The patient is competent. The risks and benefits of the procedure and the sedation options and risks were discussed with the patient. All questions were answered and informed consent was obtained. Patient identification and proposed procedure were verified by the physician, the nurse and the anesthesiologist in the endoscopy suite. Mental Status Examination: alert and oriented. Airway Examination: normal oropharyngeal airway and neck mobility. Respiratory Examination: clear to auscultation. CV Examination: normal. Prophylactic Antibiotics: The patient does not require prophylactic antibiotics. Prior Anticoagulants: The patient has taken no previous anticoagulant or antiplatelet agents. ASA Grade Assessment: III - A patient with severe systemic disease. After reviewing the risks and benefits, the patient was deemed in satisfactory condition to undergo the procedure. The anesthesia plan was to use monitored anesthesia care (MAC). Immediately prior to administration of medications, the patient was re-assessed for adequacy to receive sedatives. The heart rate, respiratory rate, oxygen saturations, blood pressure, adequacy of pulmonary ventilation, and response to care were monitored throughout the procedure. The physical status of the patient was re-assessed after the procedure. The Colonoscope was introduced through the anus and advanced to the cecum, identified by appendiceal orifice and ileocecal valve. The colonoscopy was unusually difficult due to restless leg syndrome. Successful completion of the procedure was aided by receiving assistance from additional staff. The patient tolerated the procedure. The quality of the bowel preparation was poor. Findings: Hemorrhoids were found on perianal exam. A few small-mouthed diverticula were found in the descending colon. A small polyp was found in the descending colon. The polyp was sessile. The polyp was removed with a cold snare. Resection and retrieval were complete. Estimated blood loss was minimal. There was evidence of a prior end-to-side colo-colonic anastomosis in the descending colon. This was patent. The anastomosis was traversed. The retroflexed view of the distal rectum and anal verge was normal and showed no anal or rectal abnormalities. Impression: - Preparation of the colon was poor. - Hemorrhoids found on perianal exam. - Diverticulosis in the descending colon. - One small polyp in the descending colon, removed with a cold snare. Resected and retrieved. - Patent end-to-side colo-colonic anastomosis. - The distal rectum and anal verge are normal on retroflexion view. Recommendation: - Discharge patient to home (ambulatory). - High fiber diet indefinitely. Anjel Green MD Anjel Green MD 01/15/2019 10:27:29 AM Electronically signed by Anjel Green MD Number of Addenda: 0 Note Initiated On: 01/15/2019 9:36 AM Estimated Blood Loss: Estimated blood loss was minimal.
[2019-01-15 10:28] VITALS: BP 133/91
== END 2019-01-15 11:01 | disposition home or self-care (01) ==
LOC: M OPP 08:39
PROVIDERS: ATTEND Surgery
DX: K64.9 Unspecified hemorrhoids (principal); K63.5 Polyp of colon; Z98.0 Intestinal bypass and anastomosis status; K57.30 Diverticulosis of large intestine without perforation or abscess without bleeding; K59.00 Constipation, unspecified; K62.1 Rectal polyp; R10.13 Epigastric pain; R10.12 Left upper quadrant pain; R10.31 Right lower quadrant pain; K92.1 Melena; Z88.5 Allergy status to narcotic agent; Z88.8 Allergy status to other drugs, medicaments and biological substances; Z91.040 Latex allergy status; Z79.891 Long term (current) use of opiate analgesic; Z79.899 Other long term (current) drug therapy; Z87.891 Personal history of nicotine dependence

== ENCOUNTER → 2019-08-13 | Outpatient (CLI) | payer MEDICARE, MEDICAID ==
[~2019-08-13] MED LIST changes: -AMIT25TA PO; +AMIT25TA17 PO; +CLON0.5T2 PO; -CLON0.5T8 PO; -ESCI20TA PO; +ESCI20TA16 PO; +GABA-282 PO; -GABA-843 PO; -HYDR-2807 PO; +HYDR-4433 PO; -NS 1,000 ML IV ONE; +PANT40TA29 PO; -PANT40TA3 PO; +RISP-7 PO; -RISP0.5T3 PO
[2019-08-13 14:59] LABS: ALBUMIN 3.7 GM/DL (3.2-5.2); ALT/SGPT 30 U/L (12-78); BILIRUBIN,TOTAL 0.2 MG/DL (0.2-1.0); BLOOD UREA NITROGEN 22 MG/DL (7-18); CALCIUM LEVEL 9.1 MG/DL (8.5-10.1); CARBON DIOXIDE LEVEL 29 MEQ/L (21-32); CHLORIDE LEVEL 107 MEQ/L (98-107); CHOLESTEROL LEVEL 218 MG/DL (<200); CHOLESTEROL RISK RATIO 3.694 (<5); CREATININE FOR GFR 0.96 MG/DL (0.55-1.30); GLOMERULAR FILTRATION RATE > 60.0 (>51); GLUCOSE, FASTING 92 MG/DL (70-100); HDL CHOLESTEROL 59 MG/DL (>40); LDL CHOLESTEROL 143 MG/DL (<100); NON-HDL-C 159 MG/DL; POTASSIUM SERUM 4.9 MEQ/L (3.5-5.1); SODIUM LEVEL 140 MEQ/L (136-145); TOTAL PROTEIN 6.6 GM/DL (6.4-8.2); TRIGLYCERIDES LEVEL 80 MG/DL (<150)
== END ==
LOC: M WUC 09:22
PROVIDERS: ATTEND Family Medicine
DX: F41.1 Generalized anxiety disorder (principal); E78.2 Mixed hyperlipidemia; E55.9 Vitamin D deficiency, unspecified; F33.41 Major depressive disorder, recurrent, in partial remission

== ENCOUNTER → 2020-02-03 | Outpatient (CLI) | payer MEDICARE, MEDICAID ==
[~2020-02-03] MED LIST changes: +AMIT25TA PO; -AMIT25TA17 PO; +ESCI20TA PO; -ESCI20TA16 PO; -GABA-282 PO; +GABA-843 PO
[2020-02-03 16:16] LABS: HEMATOCRIT 41.6 % (36.0-47.0); MEAN CORPUSCULAR HEMOGLOBIN 28.4 pg (27.0-33.0); MEAN CORPUSCULAR HGB CONC 31.3 g/dl (32.0-36.5); MEAN CORPUSCULAR VOLUME 90.8 fl (80.0-96.0); PLATELET COUNT, AUTOMATED 168 10^3/uL (150-450); RED BLOOD COUNT 4.58 10^6/uL (4.00-5.40); WHITE BLOOD COUNT 6.4 10^3/uL (4.0-10.0)
== END ==
LOC: M WUC 10:21
PROVIDERS: ATTEND Physician Assistant Medical
DX: K62.5 Hemorrhage of anus and rectum (principal)

== ENCOUNTER → 2020-11-03 | Outpatient (CLI) | payer MEDICARE, MEDICAID ==
[~2020-11-03] MED LIST changes: -AMIT25TA PO; +AMIT25TA17 PO; -ESCI20TA PO; +ESCI20TA16 PO; +GABA-282 PO; -GABA-843 PO
[2020-11-03 17:54] LABS: BASO # 0.1 10^3/uL (0.0-0.2); EOS # 0.1 10^3/uL (0.0-0.5); EOS % 1.6 % (0.0-3.0); HEMATOCRIT 42.4 % (36.0-47.0); HEMOGLOBIN 13.4 g/dl (12.0-15.5); LYMPH # 2.3 10^3/uL (1.5-5.0); LYMPH % 29.8 % (24.0-44.0); MEAN CORPUSCULAR HEMOGLOBIN 28.3 pg (27.0-33.0); MEAN CORPUSCULAR HGB CONC 31.6 g/dl (32.0-36.5); MEAN CORPUSCULAR VOLUME 89.6 fl (80.0-96.0); MONO # 0.6 10^3/uL (0.0-0.8); MONO % 8.3 % (2.0-8.0); NEUTROPHILS # 4.6 10^3/uL (1.5-8.5); NEUTROPHILS % 58.9 % (36.0-66.0); PLATELET COUNT, AUTOMATED 181 10^3/uL (150-450); RED BLOOD COUNT 4.73 10^6/uL (4.00-5.40); WHITE BLOOD COUNT 7.7 10^3/uL (4.0-10.0)
[2020-11-03 18:29] LABS: ALBUMIN 3.6 GM/DL (3.2-5.2); BILIRUBIN,TOTAL 0.3 MG/DL (0.2-1.0); CALCIUM LEVEL 9.5 MG/DL (8.5-10.1); CREATININE FOR GFR 1.06 MG/DL (0.55-1.30); GLOMERULAR FILTRATION RATE 56.5 (>51); POTASSIUM SERUM 4.6 MEQ/L (3.5-5.1); TOTAL PROTEIN 6.8 GM/DL (6.4-8.2)
== END ==
LOC: M PLALAB 14:57
PROVIDERS: ATTEND Physician Assistant
DX: R10.31 Right lower quadrant pain (principal); R10.84 Generalized abdominal pain
CPT/HCPCS: 36415; 80053; 83690; 85025; G0463

== ENCOUNTER → 2020-11-08 | Outpatient (CLI) | payer MEDICARE, MEDICAID ==
[~2020-11-08] MED LIST changes: +GASTROGRAFIN SOLUTION 30ML (Q9963) ONE; +ISOVUE-370 76% 100ML VIAL ONE
--- NOTE | 2020-11-08 11:22 | REP ---
INDICATION: RLQ ABD PAIN, GENERALIZED ABD PAIN. COMPARISON: Multiple the latest 10/04/2018 TECHNIQUE: Standard helical technique after the intravenous administration of 100 cc Isovue 370 and oral bowel preparatory contrast administration. FINDINGS: The lung bases are clear and unchanged. There is intrahepatic ductal dilatation which is stable secondary to postcholecystectomy. No enhancing hepatic masses have developed. The spleen, pancreas, adrenal glands, and kidneys are unchanged and again seen to be within normal limits. The abdominal aorta and para-aortic regions are unchanged and again seen to be within normal limits. The bowel loops and the mesenteries are within normal limits. Bilateral hip arthroplasties cause spray artifact which obscure the pelvis. There is no evidence of free fluid or free air. Bone window technique throughout the exam shows no significant change in appearance of the osseous structures. IMPRESSION: There is no evidence of acute disease. Findings as described above. <Electronically signed by Kalin Greer > 11/08/20 [id number]
== END ==
LOC: M PLAIMG 08:59
PROVIDERS: ATTEND Physician Assistant
DX: R10.31 Right lower quadrant pain (principal); R10.84 Generalized abdominal pain
CPT/HCPCS: 74177; Q9963; Q9967

== ENCOUNTER → 2020-12-16 | Outpatient (CLI) | payer MEDICARE, MEDICAID ==
[~2020-12-16] MED LIST changes: -GASTROGRAFIN SOLUTION 30ML (Q9963) ONE; -ISOVUE-370 76% 100ML VIAL ONE
--- NOTE | 2020-12-16 16:15 | REP ---
INDICATION: RT LOWER QUAD PAIN ? POSSIBLE HERNIA. COMPARISON: CT of 11/08/2020 which showed normal inguinal regions TECHNIQUE: Real-time sonographic evaluation of the right inguinal region FINDINGS: There is no evidence of a hernia. Normal adipose tissue was identified. IMPRESSION: No ultrasonographic evaluation of an abnormality <Electronically signed by Kalin Greer > 12/16/20 [id number]
== END ==
LOC: M RAD 11:08
PROVIDERS: ATTEND Physician Assistant Medical
DX: R10.31 Right lower quadrant pain (principal)

== ENCOUNTER 2021-03-22 08:29 | Day surgery (SDC) | payer MEDICARE, MEDICAID ==
[~2021-03-22] VITALS: Ht 167.6 cm; Wt 97.1 kg
[~2021-03-22 08:29] MED LIST changes: +D31000TA2 PO; +ECOT81TA5 PO; +LATU20TA; +NS 1,000 ML IV ONE; +VENL37.598; +VITA400C50 PO
[2021-03-22] MEDS ORDERED: LIDOCAINE 2% 100MG/5ML SDV (FOR ANES.) As Ordered ONE (10:07)
[2021-03-22] MEDS ORDERED: propofoL 500 MG/50 ML VIAL As Ordered ONE (10:07)
[2021-03-22 10:41] VITALS: BP 155/81
== END 2021-03-22 10:54 | disposition home or self-care (01) ==
LOC: M OPP 08:29
PROVIDERS: ATTEND Internal Medicine Gastroenterology
DX: K62.1 Rectal polyp (principal); K57.30 Diverticulosis of large intestine without perforation or abscess without bleeding; K64.8 Other hemorrhoids; Z98.0 Intestinal bypass and anastomosis status; Z86.010 Personal history of colon polyps; Z79.82 Long term (current) use of aspirin; Z79.899 Other long term (current) drug therapy; Z88.5 Allergy status to narcotic agent; Z88.8 Allergy status to other drugs, medicaments and biological substances; Z91.040 Latex allergy status; Z87.891 Personal history of nicotine dependence; K63.5 Polyp of colon

== ENCOUNTER → 2021-04-28 | Outpatient (REF) | payer MEDICARE, MEDICAID ==
[~2021-04-28] MED LIST changes: -D31000TA2 PO; -NS 1,000 ML IV ONE; +VITA100093 PO
== END ==
LOC: M SFHCPLAZ 16:41
PROVIDERS: ATTEND Family Medicine
DX: F41.1 Generalized anxiety disorder (principal); Z79.899 Other long term (current) drug therapy

== ENCOUNTER → 2021-11-03 | Outpatient (CLI) | payer MEDICARE, MEDICAID | LOC: M RAD 09:54 | PROVIDERS: ATTEND Orthopaedic Surgery | DX: Z96.643 Presence of artificial hip joint, bilateral (principal) | CPT/HCPCS: 78315; A9503 ==

== ENCOUNTER → 2022-03-01 | Outpatient (CLI) | payer MEDICARE, MEDICAID ==
[2022-03-01 10:36] LABS: PLATELET COUNT, AUTOMATED 162 10^3/uL (150-450)
[2022-03-01 10:44] LABS: INR 0.86; PROTHROMBIN TIME 11.9 SECONDS (12.5-14.5)
[2022-03-01 10:45] LABS: PARTIAL THROMBOPLASTIN TIME 24.2 SECONDS (24.8-34.2)
== END ==
LOC: M PLALAB 08:58
PROVIDERS: ATTEND Orthopaedic Surgery
DX: M48.062 Spinal stenosis, lumbar region with neurogenic claudication (principal); Z79.899 Other long term (current) drug therapy

== ENCOUNTER → 2022-08-02 | Outpatient (CLI) | payer MEDICARE, MEDICAID | LOC: M WHC 14:34 | PROVIDERS: ATTEND Family Medicine | DX: Z12.31 Encounter for screening mammogram for malignant neoplasm of breast (principal) ==

== ENCOUNTER → 2022-08-11 | Outpatient (CLI) | payer MEDICARE, MEDICAID ==
[2022-08-11 10:21] LABS: HEMATOCRIT 40.3 % (36.0-47.0); HEMOGLOBIN 12.7 g/dl (12.0-15.5); MEAN CORPUSCULAR HEMOGLOBIN 28.8 pg (27.0-33.0); MEAN CORPUSCULAR HGB CONC 31.5 g/dl (32.0-36.5); MEAN CORPUSCULAR VOLUME 91.4 fl (80.0-96.0); PLATELET COUNT, AUTOMATED 137 10^3/uL (150-450); RED BLOOD COUNT 4.41 10^6/uL (4.00-5.40); WHITE BLOOD COUNT 6.3 10^3/uL (4.0-10.0)
[2022-08-11 10:26] LABS: ALBUMIN 3.4 G/DL (3.2-5.2); ALKALINE PHOSPHATASE 85 U/L (46-116); ALT/SGPT 15 U/L (7.0-40); AST/SGOT 13 U/L (<34); BILIRUBIN,TOTAL 0.3 MG/DL (0.3-1.2); BLOOD UREA NITROGEN 20 MG/DL (9-23); CALCIUM LEVEL 9.6 MG/DL (8.3-10.6); CARBON DIOXIDE LEVEL 30 MMOL/L (20-31); CHLORIDE LEVEL 107 MMOL/L (98-107); CHOLESTEROL LEVEL 203 MG/DL (<200); CHOLESTEROL RISK RATIO 3.78 (<5); CREATININE FOR GFR 0.97 MG/DL (0.55-1.30); GLOMERULAR FILTRATION RATE > 60.0 (>45); GLUCOSE, FASTING 94 MG/DL (74-106); HDL CHOLESTEROL 53.6 MG/DL (>40); NON-HDL-C 149.4 MG/DL; POTASSIUM SERUM 4.7 MMOL/L (3.5-5.1); SODIUM LEVEL 143 MMOL/L (136-145); TOTAL PROTEIN 6.1 G/DL (5.7-8.2); TRIGLYCERIDES LEVEL 87 MG/DL (<150)
[2022-08-11 10:38] LABS: TOTAL 25(OH) VITAMIN D 64.9 NG/ML (20.0-100.0)
== END ==
LOC: M PLALAB 07:47
PROVIDERS: ATTEND Family Medicine
DX: E78.2 Mixed hyperlipidemia (principal); E55.9 Vitamin D deficiency, unspecified; J30.2 Other seasonal allergic rhinitis; R06.00 Dyspnea, unspecified

== ENCOUNTER → 2022-08-18 | Outpatient (CLI) | payer MEDICARE, MEDICAID | LOC: M PLALAB 14:42 | PROVIDERS: ATTEND Family Medicine | DX: R53.83 Other fatigue (principal) ==

== ENCOUNTER → 2023-09-24 | Outpatient (CLI) | payer MEDICARE, MEDICAID ==
[~2023-09-24] MED LIST changes: -AMIT25TA17 PO; +AMIT25TA19 PO; +CLON-952 PO; -KLON2TAB PO; -RISP-7 PO; +RISP0.5T82 PO
[2023-09-24 14:02] LABS: HEMATOCRIT 41.8 % (36.0-47.0); HEMOGLOBIN 13.2 g/dl (12.0-15.5); MEAN CORPUSCULAR HEMOGLOBIN 29.9 pg (27.0-33.0); MEAN CORPUSCULAR HGB CONC 31.6 g/dl (32.0-36.5); MEAN CORPUSCULAR VOLUME 94.6 fl (80.0-96.0); PLATELET COUNT, AUTOMATED 131 10^3/uL (150-450); RED BLOOD COUNT 4.42 10^6/uL (4.00-5.40); WHITE BLOOD COUNT 6.8 10^3/uL (4.0-10.0)
[2023-09-24 14:04] LABS: ALBUMIN 3.7 G/DL (3.2-5.2); BILIRUBIN,TOTAL 0.4 MG/DL (0.3-1.2); CALCIUM LEVEL 9.3 MG/DL (8.3-10.6); CHOLESTEROL RISK RATIO 2.92 (<5); GLOMERULAR FILTRATION RATE 59.8 (>45); LDL CHOLESTEROL 84.6 MG/DL (<100); POTASSIUM SERUM 4.9 MMOL/L (3.5-5.1); TOTAL PROTEIN 6.4 G/DL (5.7-8.2)
[2023-09-24 14:06] LABS: THYROID STIMULATING HORMONE 1.786 uIU/ML (0.55-4.78); TOTAL 25(OH) VITAMIN D 59.3 NG/ML (20.0-100.0)
[2023-09-24 14:11] LABS: HEMOGLOBIN A1c 5.6 % (4.0-6.0)
== END ==
LOC: M PLALAB 09:39
PROVIDERS: ATTEND Family Medicine
DX: E55.9 Vitamin D deficiency, unspecified (principal); E78.2 Mixed hyperlipidemia; F41.1 Generalized anxiety disorder; K21.9 Gastro-esophageal reflux disease without esophagitis; G47.33 Obstructive sleep apnea (adult) (pediatric); Z13.1 Encounter for screening for diabetes mellitus

== ENCOUNTER → 2024-02-21 | Outpatient (REF) | payer MEDICARE, MEDICAID ==
[~2024-02-21] MED LIST changes: +GABA-1172 PO; -GABA-282 PO
== END ==
LOC: M LAB REF 17:18
PROVIDERS: ATTEND Physician Assistant Medical
DX: B34.9 Viral infection, unspecified (principal)

== ENCOUNTER 2024-02-25 16:32 | Emergency (ER) | payer MEDICARE, MEDICAID ==
[~2024-02-25] VITALS: Ht 167.6 cm; Wt 101.9 kg
[2024-02-25 18:38] LABS: BASO % 0.2 % (0.0-1.0); EOS # 0.1 10^3/uL (0.0-0.5); HEMATOCRIT 42.9 % (36.0-47.0); HEMOGLOBIN 13.8 g/dl (12.0-15.5); LYMPH # 2.3 10^3/uL (1.5-5.0); LYMPH % 28.4 % (24.0-44.0); MEAN CORPUSCULAR HEMOGLOBIN 29.5 pg (27.0-33.0); MEAN CORPUSCULAR HGB CONC 32.2 g/dl (32.0-36.5); MEAN CORPUSCULAR VOLUME 91.7 fl (80.0-96.0); MONO # 0.4 10^3/uL (0.0-0.8); MONO % 5.2 % (2.0-8.0); NEUTROPHILS # 5.3 10^3/uL (1.5-8.5); NEUTROPHILS % 64.8 % (36.0-66.0); PLATELET COUNT, AUTOMATED 161 10^3/uL (150-450); RED BLOOD COUNT 4.68 10^6/uL (4.00-5.40); WHITE BLOOD COUNT 8.2 10^3/uL (4.0-10.0)
[2024-02-25 19:03] LABS: CPK CREATINE PHOSPHOKINASE 166 U/L (34-145)
[2024-02-25 19:04] LABS: ALBUMIN 3.8 G/DL (3.2-5.2); ALKALINE PHOSPHATASE 107 U/L (35-104); ALT/SGPT 55 U/L (7.0-40); AST/SGOT 39 U/L (<34); BILIRUBIN,DIRECT < 0.1 MG/DL (<0.4); BILIRUBIN,TOTAL 0.3 MG/DL (0.3-1.2); BLOOD UREA NITROGEN 22 MG/DL (9-23); CALCIUM LEVEL 9.7 MG/DL (8.3-10.6); CARBON DIOXIDE LEVEL 26 MMOL/L (20-31); CHLORIDE LEVEL 108 MMOL/L (98-107); CK-MB VALUE MASS < 1.0 NG/ML (<3.6); GLOMERULAR FILTRATION RATE > 60.0 (>45); GLUCOSE, FASTING 116 MG/DL (74-106); POTASSIUM SERUM 4.4 MMOL/L (3.5-5.1); SODIUM LEVEL 143 MMOL/L (136-145); TOTAL PROTEIN 7.5 G/DL (5.7-8.2)
[2024-02-25] MEDS ORDERED: VENTAER INH (22:34)
[2024-02-25] MEDS ORDERED: BENZ200C70 PO (22:34)
[2024-02-25 22:38] VITALS: BP 141/87; TEMP 98.3; O2SAT 98
== END 2024-02-25 22:40 | disposition home or self-care (01) ==
LOC: M ED 21:47
DX: U07.1 COVID-19 (principal); Z88.5 Allergy status to narcotic agent; Z88.8 Allergy status to other drugs, medicaments and biological substances; Z91.040 Latex allergy status; Z79.1 Long term (current) use of non-steroidal anti-inflammatories (NSAID); Z79.51 Long term (current) use of inhaled steroids; Z79.899 Other long term (current) drug therapy

== ENCOUNTER → 2024-09-29 | Outpatient (CLI) | payer MEDICARE, MEDICAID ==
[~2024-09-29] MED LIST changes: +BENZ200C70 PO; +TOPI-256 PO; -TOPI25TA10 PO; +VENTAER INH
[2024-09-29 11:56] LABS: BASO # 0.0 10^3/uL (0.0-0.2); BASO % 0.7 % (0.0-1.0); EOS # 0.1 10^3/uL (0.0-0.5); EOS % 1.9 % (0.0-3.0); LYMPH # 1.9 10^3/uL (1.5-5.0); LYMPH % 34.9 % (24.0-44.0); MONO # 0.4 10^3/uL (0.0-0.8); MONO % 6.5 % (2.0-8.0); NEUTROPHILS # 3.0 10^3/uL (1.5-8.5); NEUTROPHILS % 55.8 % (36.0-66.0); PLATELET COUNT, AUTOMATED 137 10^3/uL (150-450)
[2024-09-29 12:28] LABS: ALT/SGPT 29.0 U/L (7.0-40); AST/SGOT 27.0 U/L (<34); CALCIUM LEVEL 9.2 MG/DL (8.3-10.6); CARBON DIOXIDE LEVEL 29.0 MMOL/L (20-31); CHLORIDE LEVEL 106.0 MMOL/L (98-107); CHOLESTEROL LEVEL 143.0 MG/DL (<200); CHOLESTEROL RISK RATIO 2.52 (<5); CREATININE FOR GFR 0.93 MG/DL (0.55-1.30); GLOMERULAR FILTRATION RATE 69.1 (>45); LDL CHOLESTEROL 68.6 MG/DL (<100); NON-HDL-C 86.4 MG/DL; POTASSIUM SERUM 4.5 MMOL/L (3.5-5.1); SODIUM LEVEL 143.0 MMOL/L (136-145); TRIGLYCERIDES LEVEL 89.0 MG/DL (<150)
[2024-09-29 12:30] LABS: TOTAL 25(OH) VITAMIN D 65.8 NG/ML (20.0-100.0)
== END ==
LOC: M PLALAB 08:47
DX: F41.1 Generalized anxiety disorder (principal); E55.9 Vitamin D deficiency, unspecified; E78.2 Mixed hyperlipidemia

== ENCOUNTER → 2024-11-25 | Outpatient (REF) | payer MEDICARE, MEDICAID ==
[2024-11-25 12:49] LABS: APPEARANCE, URINE HAZY (CLEAR); BACTERIA, URINE AUTO 1+ (NEGATIVE); BILIRUBIN, URINE AUTO 1+ (NEGATIVE); BLOOD, URINE BLOOD NEGATIVE (NEGATIVE); GLUCOSE, URINE (UA) AUTO NEGATIVE (NEGATIVE); KETONE, URINE AUTO TRACE mg/dL (NEGATIVE); LEUKOCYTE ESTERASE, URINE AUTO 2+ (NEGATIVE); MUCUS, URINE SMALL (NEGATIVE); NITRITE, URINE AUTO NEGATIVE (NEGATIVE); PROTEIN, URINE AUTO 1+ mg/dL (NEGATIVE); RBC, URINE AUTO 2 /HPF (0-3); SPECIFIC GRAVITY URINE AUTO 1.028 (1.002-1.035); SQUAMOUS EPITHELIAL CELL UR AU 13 /HPF (0-6); UROBILINOGEN, URINE AUTO 2.0 mg/dL (0.0-2.0); WBC, URINE AUTO 38 /HPF (0-3)
== END ==
LOC: M LAB REF 12:00
PROVIDERS: ATTEND Physician Assistant Medical
DX: N39.0 Urinary tract infection, site not specified (principal)

== ENCOUNTER → 2024-12-24 | Outpatient (REF) | payer MEDICARE, MEDICAID ==
[2024-12-24 13:23] LABS: APPEARANCE, URINE HAZY (CLEAR); BACTERIA, URINE AUTO 1+ (NEGATIVE); BILIRUBIN, URINE AUTO 1+ (NEGATIVE); BLOOD, URINE BLOOD NEGATIVE (NEGATIVE); GLUCOSE, URINE (UA) AUTO NEGATIVE (NEGATIVE); KETONE, URINE AUTO TRACE mg/dL (NEGATIVE); LEUKOCYTE ESTERASE, URINE AUTO 3+ (NEGATIVE); MUCUS, URINE SMALL (NEGATIVE); NITRITE, URINE AUTO NEGATIVE (NEGATIVE); PROTEIN, URINE AUTO 1+ mg/dL (NEGATIVE); RBC, URINE AUTO 2 /HPF (0-3); SPECIFIC GRAVITY URINE AUTO 1.029 (1.002-1.035); SQUAMOUS EPITHELIAL CELL UR AU 8 /HPF (0-6); UROBILINOGEN, URINE AUTO 0.2 mg/dL (0.0-2.0); WBC, URINE AUTO 42 /HPF (0-3)
== END ==
LOC: M SFHCPLAZ 12:54
DX: R39.9 Unspecified symptoms and signs involving the genitourinary system (principal)

== ENCOUNTER → 2025-01-14 | Outpatient (CLI) | payer MEDICARE, MEDICAID | LOC: M SOG 07:42 | PROVIDERS: ATTEND Orthopaedic Surgery | DX: M25.561 Pain in right knee (principal); M17.0 Bilateral primary osteoarthritis of knee ==